=== PATIENT | male | born 1960 | race Caucasian/White ===

== ENCOUNTER 2018-05-28 06:53 | Day surgery (SDC) | payer OTHER ==
[~2018-05-28] VITALS: Ht 205.7 cm; Wt 133.5 kg
[~2018-05-28 06:53] MED LIST: ESCI10 PO; MIRALAX17 GM PO
--- NOTE | 2018-05-28 08:16 | NUR ---
05/28/18 0815 Erasmo Fields RECIEVED REPORT FROM [facility].[email or web address].
== END 2018-05-28 08:56 | disposition home or self-care (01) ==
LOC: ORSCSDS 06:53
PROVIDERS: Student in an Organized Health Care Education/Training Program
PROC: 0DBP8ZX Excision of Rectum, Via Natural or Artificial Opening Endoscopic, Diagnostic (ICD-10-PCS; principal; 2018-05-28 08:45)
DX: R15.0 Incomplete defecation (principal); Z86.010 Personal history of colon polyps; D12.8 Benign neoplasm of rectum; K64.8 Other hemorrhoids; E78.5 Hyperlipidemia, unspecified; Z79.899 Other long term (current) drug therapy
CPT/HCPCS: 88305; J0330; J1980; J2405; J7120

== ENCOUNTER 2020-10-08 11:50 | Emergency (ER) | payer OTHER ==
[~2020-10-08] VITALS: Ht 205.7 cm; Wt 143.8 kg
[2020-10-08] MEDS ORDERED: MONT10T PO (14:24)
[2020-10-08] MEDS ORDERED: ESCI20 PO (14:24)
== END 2020-10-08 15:15 | disposition home or self-care (01) ==
LOC: ER 11:50
DX: R53.1 Weakness (principal); F17.220 Nicotine dependence, chewing tobacco, uncomplicated; Z79.899 Other long term (current) drug therapy
CPT/HCPCS: 36415; 83880; 84484; 93005; 93010; 99283-25

== ENCOUNTER 2021-09-29 05:52 | Day surgery (SDC) | payer OTHER ==
[~2021-09-29] VITALS: Ht 205.7 cm; Wt 157.5 kg
[~2021-09-29 05:52] MED LIST changes: +ASPI81CH PO; +ATOR40TA PO; +ESCI20 PO; +MONT10T PO
--- NOTE | 2021-09-29 11:45 | NUR ---
PATIENT ARRIVED TO UNIT, A&O X4. VSS ON 3L O2 WITH SATS >92%. PATIENT HAS FULL SENSATION TO LOWER EXTREMITIES, WIGGLES ALL TOES, DENIES PAIN. RIKKI WRAP & POLAR PACK TO R KNEE, C/D/I. LUNGS CLEAR. PATIENT RESTING IN BED. ORIENTED TO ROOM & CALL LIGHT, CALL LIGHT IN REACH.
[2021-09-29] MEDS ORDERED: OXYC5 PO (15:41)
[2021-09-29] MEDS ORDERED: SULTRIDS PO (15:42)
[2021-09-29] MEDS ORDERED: PROM25 PO (15:42)
--- NOTE | 2021-09-29 17:59 | NUR ---
SHIFT SUMMARY NO ACUTE CHANEGS SINCE ARRIVAL. PATIENT UP WITH THERAPY AND DID VERY WELL, 1P SBA W/ FWW & GB, UP TO CHAIR, UP TO BR. EATING, DRINKING, & VOIDING WELL. PAIN MANAGED PER EMAR, REPORTED TO BE TOLERABLE. CALLS APPROPRIATELY, WILL REPORT TO ONCOMING RN.
--- NOTE | 2021-09-30 03:34 | NUR ---
SUMMARY NO NEW ISSUES NOTED. PT PAIN MANAGED WELL. PT AMBULATORY AND DRINKING PO FLUID. PT IS VOIDING WELL. PT CURRENTLY SLEEPING AND IN NO DISTRESS. CALL LIGHT IN REACH.
[2021-09-30 04:45] LABS: BASOPHILS ABSOLUTE AUTO 0.03 K/mm3 (0.00-0.23); BASOPHILS PERCENT AUTO 0 % (0-2); EOSINOPHILS ABSOLUTE AUTO 0.24 K/mm3 (0.00-0.68); EOSINOPHILS PERCENT AUTO 2 % (0-6); Hematocrit 41.1 % (37.0-53.0); IMMATURE GRAN ABSOLUTE AUTO 0.14 K/mm3 (0.00-0.10); IMMATURE GRAN PERCENT AUTO 1 % (0-1); LYMPHOCYTES ABSOLUTE AUTO 2.17 K/mm3 (0.84-5.20); LYMPHOCYTES PERCENT AUTO 17 % (21-46); MONOCYTES ABSOLUTE AUTO 1.45 K/mm3 (0.16-1.47); MONOCYTES PERCENT AUTO 11 % (4-13); Mean Corpuscular HGB 32.3 pg (26.0-34.0); Mean Corpuscular HGB Conc 34.1 g/dL (31.5-36.5); Mean Corpuscular Volume 95 fL (80-100); Mean Platelet Volume 11.5 fL (9.1-12.4); NEUTROPHILS ABSOLUTE AUTO 8.66 K/mm3 (1.96-9.15); NEUTROPHILS PERCENT AUTO 68 % (41-73); Platelet Count 146 K/mm3 (150-400); RDW Coefficient Variation 12.8 % (11.7-14.2); RDW Standard Deviation 44.5 fL (35.1-46.3); Red Blood Cell Count 4.34 M/mm3 (4.30-5.90); White Blood Cell Count 12.69 K/mm3 (4.00-11.30)
[2021-09-30 05:10] LABS: Bun/Creatinine Ratio 19.6 (12.0-20.0); Calcium, Blood 8.8 mg/dL (8.5-10.1); Creatinine, Blood 0.97 mg/dL (0.60-1.20); Magnesium, Blood 2.1 mg/dL (1.6-2.4); Potassium, Blood 4.1 mmol/L (3.5-5.5)
--- NOTE | 2021-09-30 07:53 | NUR ---
09/30/21 0753 Liz Bautista VERIFICATIONS: EDIT CHART.
--- NOTE | 2021-09-30 10:40 | NUR ---
Pt. is sitting up in a chair and welcomes my visit. Pt. is pleasant, and verbalizes that he is awaiting discharge. Establish rapport and pray for Pt. Pt. verblaizes gratitude for the spiritual care visit.
--- NOTE | 2021-09-30 11:11 | NUR ---
DISCHARGE SUMMARY POD 1 R TKA, A/O X4, VSS, TOLERATING PO, PAIN WELL MANAGED, VOIDING/AMBULATING. DISCUSSED DISCHARGE INFORMATION WITH THE PATIENT AND HIS S/O INCLUDING HOME CARE, DRESSING CHANGES, INCISION CARE, R.I.C.E., AND FOLLOW UP APPOINTMENTS. PT HAD NO QUESTIONS AT THIS TIME, CONTACT INFORMATION PROVIDED SHOULD QUESTIONS COME UP AFTER PT LEAVES TODAY. IV ACCESS REMOVED FROM BOTH LOCATIONS AND NO OTHER DEVICES IN PLACE. PT ESCORTED OUT VIA WC TO PRAIVATE AUTO WITH ALL PERSONAL ITEMS.
== END 2021-09-30 11:01 | disposition home or self-care (01) ==
LOC: ORSCMMR 05:52 → ORD 10:00 → SURS 11:47 → ORSCMMR 09-30 11:01
PROVIDERS: Orthopaedic Surgery
PROC: 0SRC0J9 Replacement of Right Knee Joint with Synthetic Substitute, Cemented, Open Approach (ICD-10-PCS; principal; 2021-09-29 07:30)
PROC: 8E0YXBZ Computer Assisted Procedure of Lower Extremity (ICD-10-PCS; principal; 2021-09-29 07:30)
DX: M17.0 Bilateral primary osteoarthritis of knee (principal); I10 Essential (primary) hypertension; E78.00 Pure hypercholesterolemia, unspecified; G47.33 Obstructive sleep apnea (adult) (pediatric); F32.A Depression, unspecified; Z79.899 Other long term (current) drug therapy; E66.9 Obesity, unspecified; Z68.37 Body mass index [BMI] 37.0-37.9, adult
CPT/HCPCS: 36415; 73560-RT; 80048; 82947; 83735; 85025; 97110; 97116; 97162; A9270; C1713; C1776; J0171; J0690; J0735; J1170; J1815; J1885; J2250; J2270; J2405; J2704; J2765; J2795; J3010; J7120

== ENCOUNTER 2025-01-18 15:08 | Inpatient (IN) | payer MEDICARE ==
[~2025-01-18] VITALS: Ht 205.7 cm; Wt 142.4 kg
[~2025-01-18 15:08] MED LIST changes: +OXYC5 PO; +PROM25 PO; +SULTRIDS PO
[2025-01-18] MEDS ORDERED: Albuterol 2.5 MG/3 ML VIAL INH SCH (16:00)
[2025-01-18] MEDS ORDERED: Ipratropium/Albuterol SulF 2.5-0.5MG/3 ML Amp INH ONE (16:00)
[2025-01-18] MEDS ORDERED: Magnesium Sulf 2 GM/Water 50ML 50 ML IV ONE (16:00)
[2025-01-18] MEDS ORDERED: NS 500 ML IV SCH (16:00)
[2025-01-18 16:22] LABS: Alanine Aminotransfer (ALT/SGP 56.0 U/L (12-78); Albumin, Blood 3.8 g/dL (3.4-5.0); Albumin/Globulin Ratio 0.8 (0.8-1.8); Anion Gap 16.0 mmol/L (3-11); Aspartate Aminotrans (AST/SGOT 29.0 U/L (12-37); Bilirubin, Total 1.9 mg/dL (0.1-1.0); Blood Urea Nitrogen 19.0 mg/dL (8-24); CO2, Blood 21.0 mmol/L (21-32); Calcium, Blood 9.6 mg/dL (8.5-10.1); Chloride, Blood 98.0 mmol/L (98-108); Creatinine, Blood 1.08 mg/dL (0.60-1.20); Globulin, Blood 4.6 g/dL (2.2-4.0); Glucose, Blood 203.0 mg/dL (70-99); Hematocrit 45.6 % (37.0-53.0); Hemoglobin 16.3 g/dL (13.5-17.5); Mean Corpuscular HGB Conc 35.7 g/dL (31.5-36.5); Mean Corpuscular Volume 92 fL (80-100); NRBC ABSOLUTE 0.00 K/mm3 (0.00-0.02); NRBC Auto 0.0 /100 WBC (0.0-0.2); Platelet Count 227 K/mm3 (150-400); Potassium, Blood 3.9 mmol/L (3.5-5.5); RDW Coefficient Variation 12.6 % (11.7-14.2); RDW Standard Deviation 42.2 fL (35.1-46.3); Sodium, Blood 131.0 mmol/L (136-145); Total Protein, Blood 8.4 g/dL (6.4-8.2)
[2025-01-18 16:23] LABS: Influenza A, PCR NEGATIVE (NEGATIVE); Influenza B, PCR NEGATIVE (NEGATIVE); Resp Syncytial Virus, PCR NEGATIVE (NEGATIVE); SARS-Cov-2 (COVID-19) PCR, MMC NEGATIVE (NEGATIVE)
[2025-01-18 16:44] LABS: BAND PERCENT MAN 10 % (0-8); BASOPHILS ABSOLUTE MAN 0.00 K/mm3 (0.00-0.23); BASOPHILS PERCENT MAN 0 % (0-2); EOSINOPHILS ABSOLUTE MAN 0.00 K/mm3 (0.00-0.68); EOSINOPHILS PERCENT MAN 0 % (0-6); LYMPHOCYTES ABSOLUTE MAN 0.82 K/mm3 (0.84-5.20); LYMPHOCYTES PERCENT MAN 3 % (21-46); METAMYELOCYTE ABSOLUTE MAN 0.27 K/mm3 (0.00-0.00); METAMYELOCYTE PERCENT MAN 1 % (0-0); MONOCYTES ABSOLUTE MAN 1.93 K/mm3 (0.16-1.47); MONOCYTES PERCENT MAN 7 % (4-13); NEUTROPHILS ABSOLUTE MAN 24.56 K/mm3 (1.96-9.15); SEG NEUTROPHILS PERCENT MAN 79 % (41-73)
[2025-01-18] MEDS ORDERED: CefTRIAXone Sodium 1,000 MG in NS 50 ML IV ONE (16:45)
[2025-01-18] MEDS ORDERED: NS 1,000 ML IV SCH ×2 (16:50→17:40)
[2025-01-18] MEDS ORDERED: FLU VACC TS2025(65UP)/MF59C/PF 45 MCG/0.5 ML SYRINGE IM SCH (17:55)
[2025-01-18] MEDS ORDERED: Ipratropium/Albuterol SulF 2.5-0.5MG/3 ML Amp INH SCH (18:00)
[2025-01-18] MEDS ORDERED: Lactobacil 2-S.Thermo-Bifido 1 1 Cap PO SCH (21:00)
[2025-01-18] MEDS ORDERED: Insulin Human Lispro 100 Units/ML 3ML Syringe SC SCH (21:00)
[2025-01-18 22:02] VITALS: BP 163/77
[2025-01-18] MEDS ORDERED: Albuterol 2.5 MG/3 ML VIAL INH PRN (23:15)
[2025-01-19 00:07] VITALS: BP 148/75
[2025-01-19 04:02] VITALS: BP 148/71
[2025-01-19 05:57] LABS: BASOPHILS ABSOLUTE AUTO 0.07 K/mm3 (0.00-0.23); BASOPHILS PERCENT AUTO 0 % (0-2); EOSINOPHILS ABSOLUTE AUTO 0.02 K/mm3 (0.00-0.68); EOSINOPHILS PERCENT AUTO 0 % (0-6); Hematocrit 37.4 % (37.0-53.0); Hemoglobin 13.2 g/dL (13.5-17.5); IMMATURE GRAN ABSOLUTE AUTO 0.48 K/mm3 (0.00-0.10); IMMATURE GRAN PERCENT AUTO 2 % (0-1); LYMPHOCYTES ABSOLUTE AUTO 2.15 K/mm3 (0.84-5.20); LYMPHOCYTES PERCENT AUTO 10 % (21-46); MONOCYTES ABSOLUTE AUTO 2.18 K/mm3 (0.16-1.47); MONOCYTES PERCENT AUTO 10 % (4-13); Mean Corpuscular HGB Conc 35.3 g/dL (31.5-36.5); Mean Corpuscular Volume 92 fL (80-100); NEUTROPHILS ABSOLUTE AUTO 16.81 K/mm3 (1.96-9.15); NEUTROPHILS PERCENT AUTO 78 % (41-73); NRBC ABSOLUTE 0.00 K/mm3 (0.00-0.02); NRBC Auto 0.0 /100 WBC (0.0-0.2); Platelet Count 192 K/mm3 (150-400); RDW Coefficient Variation 13.1 % (11.7-14.2); RDW Standard Deviation 43.8 fL (35.1-46.3)
[2025-01-19] MEDS ORDERED: Doxycycline Hyclate 100 MG in Dextrose 5% 250 ML IV SCH (06:00)
[2025-01-19 06:20] LABS: Alanine Aminotransfer (ALT/SGP 41.0 U/L (12-78); Albumin, Blood 3.0 g/dL (3.4-5.0); Albumin/Globulin Ratio 0.8 (0.8-1.8); Anion Gap 9.0 mmol/L (3-11); Aspartate Aminotrans (AST/SGOT 24.0 U/L (12-37); Bilirubin, Total 0.9 mg/dL (0.1-1.0); Blood Urea Nitrogen 14.0 mg/dL (8-24); CO2, Blood 25.0 mmol/L (21-32); Calcium, Blood 8.8 mg/dL (8.5-10.1); Chloride, Blood 102.0 mmol/L (98-108); Creatinine, Blood 0.8 mg/dL (0.60-1.20); Globulin, Blood 3.9 g/dL (2.2-4.0); Glucose, Blood 168.0 mg/dL (70-99); Magnesium, Blood 2.2 mg/dL (1.6-2.4); Potassium, Blood 3.5 mmol/L (3.5-5.5); Sodium, Blood 132.0 mmol/L (136-145); Total Protein, Blood 6.9 g/dL (6.4-8.2)
--- NOTE | 2025-01-19 07:41 | NUR ---
SHIFT SUMMARY PT ARRIVED TO FLOOR APPROX 1999, FAMILY AT BEDSIDE. PT IN PLEASANT MOOD. HE HAS A DRY, HACKING, UNPRODUCTIVE COUGH. LUNG SOUNDS CLEAR IN UPPER LOBES, WET THROUGHOUT MID-LOWER LOBES. PT SLEPT SOUNDLY FOR REMAINDER OF SHIFT.
[2025-01-19 07:54] VITALS: BP 149/69
[2025-01-19] MEDS ORDERED: Enoxaparin 40 MG/0.4 ML SYR SC SCH (09:00)
[2025-01-19] MEDS ORDERED: Chlorpheniramine/Hydroc Polistir 5 ML UDC PO SCH (10:26)
[2025-01-19 17:08] VITALS: BP 142/76
--- NOTE | 2025-01-19 17:43 | NUR ---
NO ACUTE CHANGES, STARTED ON COUGH SYRUP AND TESSLON PEARLS, INCREASED COUGHING, PLEASANT TO CARE, INDEPENDANT TO CARE, CALL LIGHT WITH IN REACH
[2025-01-19] MEDS ORDERED: CefTRIAXone Sodium 1,000 MG in NS 100 ML IV SCH (18:00)
[2025-01-19 19:51] VITALS: BP 151/74
[2025-01-20 04:34] LABS: BASOPHILS ABSOLUTE AUTO 0.18 K/mm3 (0.00-0.23); BASOPHILS PERCENT AUTO 1 % (0-2); EOSINOPHILS ABSOLUTE AUTO 0.14 K/mm3 (0.00-0.68); EOSINOPHILS PERCENT AUTO 1 % (0-6); Hematocrit 38.4 % (37.0-53.0); Hemoglobin 13.2 g/dL (13.5-17.5); IMMATURE GRAN ABSOLUTE AUTO 1.18 K/mm3 (0.00-0.10); IMMATURE GRAN PERCENT AUTO 5 % (0-1); LYMPHOCYTES ABSOLUTE AUTO 3.35 K/mm3 (0.84-5.20); LYMPHOCYTES PERCENT AUTO 15 % (21-46); MONOCYTES ABSOLUTE AUTO 1.83 K/mm3 (0.16-1.47); MONOCYTES PERCENT AUTO 8 % (4-13); Mean Corpuscular HGB Conc 34.4 g/dL (31.5-36.5); Mean Corpuscular Volume 93 fL (80-100); NEUTROPHILS ABSOLUTE AUTO 15.89 K/mm3 (1.96-9.15); NEUTROPHILS PERCENT AUTO 71 % (41-73); NRBC ABSOLUTE 0.00 K/mm3 (0.00-0.02); NRBC Auto 0.0 /100 WBC (0.0-0.2); Platelet Count 234 K/mm3 (150-400); RDW Coefficient Variation 13.1 % (11.7-14.2); RDW Standard Deviation 44.6 fL (35.1-46.3)
[2025-01-20 04:54] LABS: Alanine Aminotransfer (ALT/SGP 90.0 U/L (12-78); Albumin, Blood 3.0 g/dL (3.4-5.0); Albumin/Globulin Ratio 0.7 (0.8-1.8); Anion Gap 10.0 mmol/L (3-11); Aspartate Aminotrans (AST/SGOT 68.0 U/L (12-37); Bilirubin, Total 0.6 mg/dL (0.1-1.0); Blood Urea Nitrogen 14.0 mg/dL (8-24); CO2, Blood 27.0 mmol/L (21-32); Calcium, Blood 9.1 mg/dL (8.5-10.1); Chloride, Blood 100.0 mmol/L (98-108); Creatinine, Blood 0.84 mg/dL (0.60-1.20); Globulin, Blood 4.4 g/dL (2.2-4.0); Glucose, Blood 161.0 mg/dL (70-99); Magnesium, Blood 2.2 mg/dL (1.6-2.4); Phosphorus, Blood 3.3 mg/dL (2.5-4.9); Potassium, Blood 3.8 mmol/L (3.5-5.5); Sodium, Blood 133.0 mmol/L (136-145); Total Protein, Blood 7.4 g/dL (6.4-8.2)
[2025-01-20] MEDS ORDERED: NS 250 ML IV PRN (05:30)
[2025-01-20 05:40] VITALS: BP 168/74
--- NOTE | 2025-01-20 06:45 | NUR ---
SHIFT SUMMARY: Pt is admitted for sepsis R/T PNA and is a full code. Is alert and able to make needs known. ADLs have been a mix of IND to SBA depending on cord management. Denies pain or discomfort when asked. Telly noted sinus tach in the low 100s with no events.
[2025-01-20 07:41] VITALS: BP 136/72
[2025-01-20] MEDS ORDERED: AMOCLA875 PO (13:40)
[2025-01-20] MEDS ORDERED: DOXY100 PO (13:42)
--- NOTE | 2025-01-20 14:49 | NUR ---
PT DISCHARGED THE PT WAS GIVEN DC INSTRUCTIONS BY HIS PRIMARY RN.THE PT WAS TRANSFERED VIA WHEELCHAIR ACCOMPANIED BY THE INFUSION RN AND HIS
== END 2025-01-20 15:39 | disposition home or self-care (01) | DRG 871 ==
LOC: ER 15:08 → ERHOLD 17:54 → MEDS 17:54
PROVIDERS: Hospitalist; Student in an Organized Health Care Education/Training Program; ADMIT Student in an Organized Health Care Education/Training Program
DX: A41.9 Sepsis, unspecified organism (principal); J18.9 Pneumonia, unspecified organism; J96.01 Acute respiratory failure with hypoxia; J45.909 Unspecified asthma, uncomplicated; E66.9 Obesity, unspecified; R65.20 Severe sepsis without septic shock; F32.9 Major depressive disorder, single episode, unspecified; E11.65 Type 2 diabetes mellitus with hyperglycemia; Z90.49 Acquired absence of other specified parts of digestive tract; Z68.33 Body mass index [BMI] 33.0-33.9, adult; Z96.651 Presence of right artificial knee joint; Z87.891 Personal history of nicotine dependence; Z79.899 Other long term (current) drug therapy; Z91.048 Other nonmedicinal substance allergy status
CPT/HCPCS: 36415; 71045; 80053; 82947; 83605; 83735; 83880; 84100; 84145; 84484; 85025; 87449; 87637; 93005; 93010; 94640; 94664; 94760; 94762; 96365; 96375; 97116; 97162; 97165; 97530; 99285-25; A9270; J0696; J1650; J2919; J3475; J7030; J7050; J7060